=== PATIENT | female | born 1935 | race Caucasian/White ===

== ENCOUNTER 2016-12-30 14:40 | Emergency (ER) | payer OTHER, MEDICARE ==
[~2016-12-30] VITALS: Ht 172.7 cm; Wt 63.5 kg
--- NOTE | 2016-12-30 14:50 | ED MVC/FALL/TRAUMA COMPLAINT ---
History of Present Illness General Chief Complaint: Fall Stated Complaint: TRIP AND FALL C/O LEFT ELBOW, R KNEE, LEFT HEAD Source: patient Exam Limitations: no limitations Vital Signs & Intake/Output Vital Signs & Intake/Output Vital Signs Date Time Temp Pulse Resp B/P Pulse O2 O2 Flow FiO2 Ox Delivery Rate 12/30 1702 96.2 65 18 159/78 99 Room Air 12/30 1445 96.6 72 20 142/79 98 Room Air Room Air Allergies Coded Allergies: No Known Allergies (12/30/16) Reconcile Medications Metoprolol Succinate 25 MG TAB 1 TAB PO DAILY HEART (Reported) Tramadol HCl 50 MG TABLET 1 TAB PO BIDP PRN PAIN (Reported) Zolpidem Tartrate 5 MG TABLET 0.5 TAB PO QPMP PRN SLEEP (Reported) Triage Note: BIBA FROM [facility], TRIP AND FALL WHEN LEAVING EXERCISE CLASS. PT TO ED AWAKE, ALERT, ORIENTED, C/O LEFT ELBOW, RIGHT KNEE, ABRASIONS NOTED TO LEFT FOREHEAD/EYEBROW AREA. -LOC -BLOOD THINNERS. Triage Nurses Notes Reviewed? yes Onset: Abrupt Timing: single episode today Severity: severe Severity Numbers: 7 Method of Injury: direct blow, fall Loss of Consciousness: no loss of consciousness HPI: Patient is a 81-year-old female with past medical history of scoliosis fibromyalgia and hypertension who states that she was in her normal state of health today and her normal workout she was ambulating outside in the parking lot where she tripped and suffered a mechanical fall striking the left lateral aspect of her head and face to the pavement along with her left posterior elbow and right knee. Patient suffered skin abrasions Patient denies any loss of consciousness. Denies any preceding episode of lightheaded sensation or dizziness. Denies any neck pain or back pain or abdominal pain. Patient was brought in by ambulance. Tetanus is unknown. (BIANCA NOBLE) Past History Travel History Traveled to [place] past 21 day No Medical History Any Pertinent Medical History? see below for history Other Medical Hx: Hypertension, fibromyalgia Surgical History Surgical History: non-contributory Family History Hx Contributory? No (BIANCA NOBLE) Review of Systems Review of Systems Constitutional: Reports: no symptoms. Eyes: Reports: no symptoms. Ears, Nose, Throat, Mouth: Reports: no symptoms. Respiratory: Reports: no symptoms. Cardiovascular: Reports: no symptoms. Gastrointestinal/Abdominal: Reports: no symptoms. Genitourinary: Reports: no symptoms. Musculoskeletal: Reports: see HPI, joint pain. Skin: Reports: see HPI. Neurological/Psychological: Reports: see HPI. All Other Systems: Reviewed and Negative (BIANCA NOBLE) Physical Exam Physical Exam General Appearance: no apparent distress, alert, comfortable Comments: Well-developed well-nourished person in no acute distress HEENT: Normal EENT exam, extraocular motion intact, no nystagmus. Pupils equally round and reactive to light and accommodation. Nose is atraumatic. External auditory canal and Tympanic membranes clear. Pharynx normal. No swelling or edema. Neck: Supple, no lymphadenopathy, normal range of motion without pain or tenderness No central spinous tenderness Back: Nontender, no CVA tenderness. No central spinous tenderness Cardiovascular: Regular rate and rhythms no murmurs rubs or gallops, normal JVP Respiratory: Chest nontender. No respiratory distress.breath sounds clear to auscultation bilaterally Abdomen: Soft, nontender nondistended, no appreciable organomegaly. Normal bowel sounds. No ascites Extremity: No edema, no calf tenderness to palpation, normal and equal pulses. Neuro: Alert oriented x3, motor sensory normal, cranial nerves II through XII grossly intact. Skin: No appreciable rash on exposed skin, skin is warm and dry. Psych: Mood and affect is normal, memory and judgment is normal. Diagram Body: 1) Superficial skin abrasion with full active range of motion and generalized point tenderness noted 2) Olecranon superficial skin abrasion with decreased active range of motion noted with flexion and extension. Head: 1) Noted superficial skin abrasion and point tenderness no step-off deformity Core Measures ACS in differential dx? No Severe Sepsis Present: No Septic Shock Present: No (BIANCA NOBLE) Progress Differential Diagnosis: abd injury, C/T/L spine injury, ext injury, ICH, pelvis injury, pnemothorax, spinal cord injury Plan of Care: Orders Procedure Date/time Status Durable Medical Equipment 12/30 7794 Active Patient's distal extremities were neurovascularly intact. Patient does have concerns of displaced olecranon fracture in which I discussed patient with Aroldo Roberts MD who he advised patient to be placed in posterior splint and shoulder immobilizer. The wound was cleaned to the left elbow and right knee and left orbit with chlorhexidine and bacitracin Patient had no central spinous tenderness on exam and had normal steady gait on discharge. Patient was strongly advised to follow up with orthopedic surgeon Upon discharge patient looks well no apparent distress and will comply with discharge instructions and had no questions (AYANA GALARZA,BIANCA) Diagnostic Imaging: Viewed by Me: Radiology Read, CT Scan. Radiology Impression: acute abnormality, fracture Comments: PATIENT: JAYESH BRISENO PRESENT AGE: 81 PATIENT ACCOUNT NO: [id number] : 34 LOCATION: [facility] ORDERING PHYSICIAN: BIANCA GALARZA SERVICE DATE: 12/30/16 EXAM TYPE: CAT - CT HEAD WO IV CONTRAST; CT MAXILLOFACIAL W/O CON EXAMINATION: CT HEAD W/O IV CONTRAST CT FACIAL BONES WITHOUT IV CONTRAST CLINICAL INFORMATION: History of fall with head injury. COMPARISON: None TECHNIQUE: Head - Contiguous axial imaging of the head was performed from the skull base to the vertex without the administration of intravenous contrast, and axial images reconstructed at 0.625 mm, 2.5 mm and 5 mm slice thickness. Facial bones- Volumetric, helical CT acquisition of the facial bones was obtained without contrast; in addition to the standard set of axial images, multiplanar reformatted images were provided in the coronal and sagittal imaging planes. DLP: 1327 mGy-cm (total) FINDINGS: HEAD: There is atherosclerotic calcification of the vertebral arteries and right cavernous carotid artery. The brain parenchyma has normal attenuation with well-preserved dangelo-white matter differentiation. No evidence of an acute major vascular territory infarction, hemorrhage, extra-axial fluid collection, focal mass effect or midline shift. The ventricles, sulci and basilar cisterns are unremarkable. The calvarium is intact and the mastoid air cells and middle ear cavities are clear. FACIAL BONES: The maxilla, mandible and temporomandibular joints are intact. There is periodontal disease of the mandible as manifest by periapical lucencies, and cortical bone resorption, around the mandibular left central and lateral incisors. Also, there is mild periapical lucency around the right central incisor. The orbital puentes, including lamina papyracea an orbital floors, are intact. The globes are unremarkable. The orbital apex, optic canals, and retrobulbar fat planes are normal. Nasal bones, pterygoid plates and zygomatic arches are intact. The paranasal sinuses are well-aerated and the ostiomeatal units are patent. The occipital condyles, atlas, axis and atlantoaxial articulation are intact. There is degenerative osseous spurring at the anterior atlantoaxial joint. There is multilevel moderate and severe facet arthropathy of the visualized cervical spine. Multilevel uncovertebral joint hypertrophy, as well. Degenerative disc disease is severe at C5-C6 and C6-C7. At C4-C5, the severe facet arthropathy is associated with 0.5 cm of anterolisthesis of C4 on C5. There are no acute fractures identified within the anterior or posterior elements of the examined degenerated spine. No prevertebral soft tissue swelling. IMPRESSION: 1. No acute intracranial pathology. 2. No acute facial bone injury. 3. There is multilevel degenerative arthropathy of the visualized cervical spine. Findings include severe facet osteoarthritis of C4-C5 with 0.5 cm of degenerative anterolisthesis of C4 on C5. Degenerative disc disease is severe at C5-C6 and C6-C7. 4. Incidentally noted is periodontal disease affecting the mandibular incisors. DICTATED BY: FRANCESCA TELLO MD DATE/TIME DICTATED:12/30/161613 LOCATE TECHNICIAN:RAMOS DATE/TIME TRANSCRIBED:12/30/161613 CONFIDENTIAL, DO NOT COPY WITHOUT APPROPRIATE AUTHORIZATION. <Electronically signed in Other Vendor System> SIGNED BY: FRANCESCA TELLO MD 12/30/16 9729 PATIENT: JAYESH BRISENO PRESENT AGE: 81 PATIENT ACCOUNT NO: [id number] : 34 LOCATION: [facility] ORDERING PHYSICIAN: BIANCA GALARZA SERVICE DATE: 12/30/16 EXAM TYPE: RAD - XRY-ELBOW 3 OR MORE VIEWS, L EXAMINATION: XR ELBOW, LEFT CLINICAL INFORMATION: Fall. Injury. Pain. COMPARISON: None TECHNIQUE: Four views of the left elbow. FINDINGS: There is a transverse fracture through the olecranon. The proximal fracture fragment is displaced posterior and cephalad with about 2 cm proximal displacement of the fracture fragment. The humerus and the radius are intact. No dislocation. IMPRESSION: Displaced fracture through the olecranon. PATIENT: JAYESH BRISENO PRESENT AGE: 81 PATIENT ACCOUNT NO: [id number] : 34 LOCATION: [facility] ORDERING PHYSICIAN: BIANCA GALARZA SERVICE DATE: 12/30/16 EXAM TYPE: RAD - XRY-ELBOW 3 OR MORE VIEWS, L EXAMINATION: XR ELBOW, LEFT CLINICAL INFORMATION: Fall. Injury. Pain. COMPARISON: None TECHNIQUE: Four views of the left elbow. FINDINGS: There is a transverse fracture through the olecranon. The proximal fracture fragment is displaced posterior and cephalad with about 2 cm proximal displacement of the fracture fragment. The humerus and the radius are intact. No dislocation. IMPRESSION: Displaced fracture through the olecranon. PATIENT: JAYESH BRISENO PRESENT AGE: 81 PATIENT ACCOUNT NO: [id number] : 34 LOCATION: [facility] ORDERING PHYSICIAN: BIANCA GALARZA SERVICE DATE: 12/30/16 EXAM TYPE: RAD - XRY-KNEE COMPLETE RIGHT EXAMINATION: XR KNEE, RIGHT CLINICAL INFORMATION: Right knee pain following fall. COMPARISON: None. TECHNIQUE: AP, lateral and bilateral oblique views of the right knee. FINDINGS: Multiple views of the right knee demonstrate mild soft tissue swelling surrounding the right knee joint. There is no visible fracture or dislocation of the right knee. There is mild tricompartmental osteoarthrosis of the right knee joint, characterized by joint space narrowing and juxta marginal osteophyte formation. No significant suprapatellar knee joint effusion is identified. Vague linear densities within the lateral tibiofemoral compartment could reflect calcifications of the costochondral cartilage in the setting of CPPD. IMPRESSION: Mild soft tissue swelling surrounding the right knee joint, without visible fracture or dislocation. 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 Vague linear densities within the lateral tibiofemoral compartment are indeterminate but could reflect calcifications subchondral cartilage in the setting of CPPD. (AYANA GALARZA,BIANCA) Departure Departure Disposition: HOME OR SELF CARE Condition: Stable Clinical Impression Primary Impression: Closed fracture of left olecranon process Secondary Impressions: Minor head injury, Skin abrasion Additional Instructions: As discussed tomorrow please follow-up and establish orthopedic Aroldo Roberts MD to make an appointment to be seen for further evaluation treatment. Continue to leave the splint and the shoulder immobilizer on at all times for support and stability. If symptoms worsen return to emergency room. Begin to apply bacitracin to your facial wound once a day for the following 4 days. If you note signs of infection redness, pain, swelling, discharge return to emergency room Continue with [id number] ibuprofen and your already prescribed tramadol for pain and inflammation Departure Forms: Customer Survey General Discharge Information (BIANCA NOBLE) PA/ENGINE BUILDER Co-Sign Statement Statement: ED Attending supervision documentation- [] I saw and evaluated the patient. I have also reviewed all the pertinent lab results and diagnostic results. I agree with the findings and the plan of care as documented in the PA's/ENGINE BUILDER's documentation. [X] I have reviewed the ED Record and agree with the PA's/ENGINE BUILDER's documentation. [] Additions or exceptions (if any) to the PAs/ENGINE BUILDER's note and plan are summarized below: [] (ALEJANDRO LEGGETT,RAFAELA Oates) Procedures Splinting Location: LEFT UPPER EXTREMITY Manual Alignment Performed: No Hand-Made Type: orthoglass Splint: POSTERIOR SPLINT OF UPPER ARM Splint Applied By: splint applied by me Pre-Proc Neuro Vasc Exam: normal Post-Proc Neuro Vasc Exam: normal (BIANCA NOBLE)
[2016-12-30] MEDS ORDERED: METOPROLOL SUCC25 M1 PO (15:26)
[2016-12-30] MEDS ORDERED: TRAMADOL HCL50 M1 PO (15:26)
[2016-12-30] MEDS ORDERED: ZOLPIDEM TARTRAT5 M1 PO (15:26)
--- NOTE | 2016-12-30 15:29 | RADIOLOGY REPORT ---
EXAMINATION: XR ELBOW, LEFT CLINICAL INFORMATION: Fall. Injury. Pain. COMPARISON: None TECHNIQUE: Four views of the left elbow. FINDINGS: There is a transverse fracture through the olecranon. The proximal fracture fragment is displaced posterior and cephalad with about 2 cm proximal displacement of the fracture fragment. The humerus and the radius are intact. No dislocation. IMPRESSION: Displaced fracture through the olecranon.
--- NOTE | 2016-12-30 15:34 | RADIOLOGY REPORT ---
EXAMINATION: XR KNEE, RIGHT CLINICAL INFORMATION: Right knee pain following fall. COMPARISON: None. TECHNIQUE: AP, lateral and bilateral oblique views of the right knee. FINDINGS: Multiple views of the right knee demonstrate mild soft tissue swelling surrounding the right knee joint. There is no visible fracture or dislocation of the right knee. There is mild tricompartmental osteoarthrosis of the right knee joint, characterized by joint space narrowing and juxta marginal osteophyte formation. No significant suprapatellar knee joint effusion is identified. Vague linear densities within the lateral tibiofemoral compartment could reflect calcifications of the costochondral cartilage in the setting of CPPD. IMPRESSION: Mild soft tissue swelling surrounding the right knee joint, without visible fracture or dislocation. 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 Vague linear densities within the lateral tibiofemoral compartment are indeterminate but could reflect calcifications subchondral cartilage in the setting of CPPD.
--- NOTE | 2016-12-30 16:39 | CT SCAN REPORT ---
EXAMINATION: CT HEAD W/O IV CONTRAST CT FACIAL BONES WITHOUT IV CONTRAST CLINICAL INFORMATION: History of fall with head injury. COMPARISON: None TECHNIQUE: Head - Contiguous axial imaging of the head was performed from the skull base to the vertex without the administration of intravenous contrast, and axial images reconstructed at 0.625 mm, 2.5 mm and 5 mm slice thickness. Facial bones- Volumetric, helical CT acquisition of the facial bones was obtained without contrast; in addition to the standard set of axial images, multiplanar reformatted images were provided in the coronal and sagittal imaging planes. DLP: 1327 mGy-cm (total) FINDINGS: HEAD: There is atherosclerotic calcification of the vertebral arteries and right cavernous carotid artery. The brain parenchyma has normal attenuation with well-preserved dangelo-white matter differentiation. No evidence of an acute major vascular territory infarction, hemorrhage, extra-axial fluid collection, focal mass effect or midline shift. The ventricles, sulci and basilar cisterns are unremarkable. The calvarium is intact and the mastoid air cells and middle ear cavities are clear. FACIAL BONES: The maxilla, mandible and temporomandibular joints are intact. There is periodontal disease of the mandible as manifest by periapical lucencies, and cortical bone resorption, around the mandibular left central and lateral incisors. Also, there is mild periapical lucency around the right central incisor. The orbital puentes, including lamina papyracea an orbital floors, are intact. The globes are unremarkable. The orbital apex, optic canals, and retrobulbar fat planes are normal. Nasal bones, pterygoid plates and zygomatic arches are intact. The paranasal sinuses are well-aerated and the ostiomeatal units are patent. The occipital condyles, atlas, axis and atlantoaxial articulation are intact. There is degenerative osseous spurring at the anterior atlantoaxial joint. There is multilevel moderate and severe facet arthropathy of the visualized cervical spine. Multilevel uncovertebral joint hypertrophy, as well. Degenerative disc disease is severe at C5-C6 and C6-C7. At C4-C5, the severe facet arthropathy is associated with 0.5 cm of anterolisthesis of C4 on C5. There are no acute fractures identified within the anterior or posterior elements of the examined degenerated spine. No prevertebral soft tissue swelling. IMPRESSION: 1. No acute intracranial pathology. 2. No acute facial bone injury. 3. There is multilevel degenerative arthropathy of the visualized cervical spine. Findings include severe facet osteoarthritis of C4-C5 with 0.5 cm of degenerative anterolisthesis of C4 on C5. Degenerative disc disease is severe at C5-C6 and C6-C7. 4. Incidentally noted is periodontal disease affecting the mandibular incisors.
[2016-12-30 17:02] VITALS: BP 159/78
[2017-01-07] MEDS ORDERED: LIPITOR20 M2 PO (09:49)
== END 2016-12-30 18:02 ==
LOC: ERH 14:40
DX: S52.022A Displaced fracture of olecranon process without intraarticular extension of left ulna, initial encounter for closed fracture (principal); S09.90XA Unspecified injury of head, initial encounter; T14.8 Other injury of unspecified body region; W01.0XXA Fall on same level from slipping, tripping and stumbling without subsequent striking against object, initial encounter; Y93.01 Activity, walking, marching and hiking; Y92.481 Parking lot as the place of occurrence of the external cause
CPT/HCPCS: 73080-LT; 73562-RT; 90471; 90714

== ENCOUNTER 2017-01-01 15:32 | Emergency (ER) | payer OTHER, MEDICARE ==
[~2017-01-01] VITALS: Ht 172.7 cm; Wt 63.5 kg
[~2017-01-01 15:32] MED LIST: METOPROLOL SUCC25 M1 PO; TRAMADOL HCL50 M1 PO; ZOLPIDEM TARTRAT5 M1 PO
[2017-01-01 15:43] VITALS: BP 121/77
--- NOTE | 2017-01-01 16:32 | ED UPPER/LOWER EXTREMITY COMPL ---
History of Present Illness General Chief Complaint: Upper Extremity Problem Stated Complaint: LEFT ARM PAIN, SEEN HERE 12/30 FOR ELBOW FX Source: patient, old records Exam Limitations: no limitations Vital Signs & Intake/Output Vital Signs & Intake/Output Vital Signs Date Time Temp Pulse Resp B/P Pulse O2 O2 Flow FiO2 Ox Delivery Rate 01/01 1543 97.0 77 20 121/77 98 Room Air ED Intake and Output 01/02 0000 01/01 1200 Intake Total Output Total Balance Patient 140 lb Weight Allergies Coded Allergies: No Known Allergies (12/30/16) Reconcile Medications Metoprolol Succinate 25 MG TAB 1 TAB PO DAILY HEART (Reported) Tramadol HCl 50 MG TABLET 1 TAB PO BIDP PRN PAIN (Reported) Zolpidem Tartrate 5 MG TABLET 0.5 TAB PO QPMP PRN SLEEP (Reported) Triage Note: PT TO ED C/O LEFT ARM PAIN. PT IS S/P LEFT ELBOW FRACTURE ON 12/30. STATES WENT TO ORTHO YESTERDAY AND HAD LEFT ARM RE-WRAPPED. PT STATES PAIN IS WORSE, ALSO SWELLING AND BRUISING IS WORSE. DECLINES PAIN MEDS IN TRIAGE. Triage Nurses Notes Reviewed? yes HPI: 81 yo F PMH HTN, Fibromyalgia presenting with left arm pain and swelling. Patient fell on 12/30/16, sustained left olecranon process fracture, evaluated in this ED, discharged [facility] orthopedic f/u. Yesterday went to see orthopedist, examined elbow, will need surgery, but patient needs PMD cardiac clearance first , new splint and SANJAY wrap applied. Since that time patient has had progressive swelling and pain in left arm, denies finger cyanosis or pallor, motor or sensory disturbances. Concerned about pain and selling cutting off circulation prompting presentation to ED. (BAYRON LEGGETT,JAROD) Past History Travel History Traveled to [place] past 21 day No Medical History Any Pertinent Medical History? see below for history Neurological: NONE EENT: NONE Cardiovascular: hypertension Respiratory: NONE Gastrointestinal: NONE Hepatic: NONE Renal: NONE Musculoskeletal: fibromyalgia, SCOLIOSIS Psychiatric: NONE Endocrine: NONE Blood Disorders: NONE Cancer(s): NONE GEOMORPHOLOGY TEACHER/Reproductive: NONE Other Medical Hx: Hypertension, fibromyalgia Tetanus Vaccine: 12/30/16 Surgical History Surgical History: non-contributory Psychosocial History What is your primary language Estonian Tobacco Use: Quit >30 days ago ETOH Use: denies use Illicit Drug Use: denies illicit drug use Family History Hx Contributory? Yes (JAROD VERMA MD) Review of Systems Review of Systems Constitutional: Reports: no symptoms. EENTM: Reports: no symptoms. Respiratory: Reports: no symptoms. Cardiovascular: Reports: no symptoms. Gastrointestinal/Abdominal: Reports: no symptoms. Genitourinary: Reports: no symptoms. Musculoskeletal: Reports: joint swelling, muscle pain. Skin: Reports: no symptoms. Neurological/Psychological: Reports: no symptoms. Denies: paresthesia, weakness. Hematologic/Endocrine: Reports: no symptoms. Immunological: Reports: no symptoms. All Other Systems: Reviewed and Negative (JAROD VERMA MD) Physical Exam Physical Exam General Appearance: well developed/nourished, no apparent distress, alert, awake Head: normal appearance Eyes: Bilateral: normal appearance. Ears, Nose, Throat: normal pharynx, normal ENT inspection Neck: normal inspection, supple, full range of motion Peripheral Pulses: 2+ radial (R), 2+ radial (L), 2+ ulnar (L) Gastrointestinal: organmegaly (Non-TTP throughout) Back: normal inspection, normal range of motion Shoulder Left: normal range of motion, normal inspection Elbow Left: swelling, tenderness Comments: Left arm: Backslap splint and sanjay wrap in place, Full ROM of hand without motor deficits, No sensory deficits in LUE, Soft compressible compartments of upper and lower arm, Mild swelling and ecchymosis of left dorsal hand (JAROD VERMA MD) Progress Differential Diagnosis: compartment syndrome, contusion, fracture Plan of Care: Physician MDM: 81 yo F presenting with left arm swelling and pain s/p fall with elbow Fx. VSS, LUE exam as above. DDx: Fracture, Soft tissue swelling, low concern for compartment syndrome, vascular compromise, or DVT. Left upper extremity sanjay wrap removed with splint maintained in good position, re-wraped with less tension, but with good immobilization, repeat neurovascular exam unchanged. Patient given teaching about symptomatic control of swelling ( elevation, sanjay wraps ect.), already has tylenol, ibuprofen, tramadol, and oxycodone at home, counseled not to take tramadol and oxycodone together. Pain greatly improved after re-application of sanjay wrap. D/Brant with return precautions , plan to f/u wtith PMD and orthopedist as scheduled. D/W Dr. Ac. (BAYRON LEGGETT,JAROD) Departure Departure Disposition: HOME OR SELF CARE Condition: Stable Clinical Impression Primary Impression: Left arm pain Referrals: PATIENT HAS NO PRIMARY CARE DR (PCP/Family) Additional Instructions: Take ibuprofen or tylenol for mild-moderate pain. Take tramadol OR oxycodone for severe pain. Follow up with your primary care physician in the next 2-3 days for cardiac clearance for surgery. Follow up with your orthopedist as scheduled. Return to the ED for any new, worsening or concerning symptoms. Departure Forms: Customer Survey General Discharge Information (BAYRON LEGGETT,JAROD) PA/PACKING AND SHIPPING CLERK Co-Sign Statement Statement: ED Attending supervision documentation- [X] I saw and evaluated the patient. I have also reviewed all the pertinent lab results and diagnostic results. I agree with the findings and the plan of care as documented in the PA's/PACKING AND SHIPPING CLERK's documentation. [X] I have reviewed the ED Record and agree with the PA's/PACKING AND SHIPPING CLERK's documentation. [] Additions or exceptions (if any) to the PAs/PACKING AND SHIPPING CLERK's note and plan are summarized below: [] (ASIA LEGGETT,YOGESH)
[2017-01-07] MEDS ORDERED: LIPITOR20 M2 PO (09:49)
== END 2017-01-01 16:43 ==
LOC: ERH 15:32
DX: M79.602 Pain in left arm (principal)
CPT/HCPCS: 99282

== ENCOUNTER → 2017-01-10 | Day surgery (SDC) | payer OTHER, MEDICARE ==
[~2017-01-10] VITALS: Ht 172.7 cm; Wt 61.2 kg
[~2017-01-10] MED LIST changes: +LIPITOR20 M2 PO
--- NOTE | 2017-01-15 09:24 | Operative Report ---
Operative/Inv Procedure Report Surgery Date: 01/10/17 Name of Procedure: ORIF Displaced and comminuted left olecranon fracture Pre-Operative Diagnosis: Left displaced/comminuted olecranon fracture Post-Operative Diagnosis: Same Estimated Blood Loss: scant Surgeon/Nanotechnology Engineering Technologist: BARBARA LEGGETT,LAVONNE Anesthesia: moderate sedation, block Implants: 6.5 mm cannulated screw/18-gauge [id number] wire Drains: None Specimens: None Complications: None Condition: Stable Operative Indication: Patient is an 81-year-old woman who sustained an elbow injury following a fall. She was found to have a displaced olecranon fracture on the left side. Due to the amount of displacement surgery was recommended. However risks benefits and expeditious of surgical and nonsurgical options were discussed including but not limited to persistent elbow pain, weakness, infection, injury to blood vessel or nerve and anesthesia risks. Patient elected to proceed with surgical option of ORIF Operative/Procedure Note Note: Technical description of procedure. Patient was brought to the operating room and transferred to the operating table. Once under appropriate anesthesia patient was placed in a slight lateral position all bony prominences well- padded. Left upper extremity was prepped and draped in standard fashion preoperative IV antibiotics were given prophylactically. The arm was elevated exsanguinated and tourniquet was inflated to 250 mm of pressure. A standard posterior incision was made with slight curvilinear portion around the olecranon was made. The incision was taken down there was a large fracture hematoma which was evacuated. Copious irrigation of this area followed. There was evidence of comminution along the most lateral aspect of the olecranon. I was able to reduce the fracture anatomically and hold it in place with a towel clamp. I then placed a guidewire for the 6.5 mm cannulated screw across the fracture site. I checked the position of this pin to confirm. I was satisfied with position of this. I then measured it. This was followed by drilling and placed the appropriate length screw. A 100 mm screw was placed with good compression across the fracture site. To reinforce and to provide figure a compression I applied a figure 818-gauge wire. I drilled a small hole distal in the shaft of the ulna. Passed a wire through there and then I passed a wire over the cannulated screw head hugging the bone deep to the triceps area. I was satisfied with position of this wire. I then tightened the [id number] taking care not to crush the relatively osteopenic bone. I was satisfied with the compression. Took the elbow through range of motion after cutting the wire to length and removing the pin for the cannulated screw. I was satisfied with the stability. I did check fluoroscopic images in both AP lateral planes as well as oblique planes I was satisfied with the reduction of the fracture as well as the position of the screw it was well within the ulnar canal on both AP and lateral planes. After copious irrigation I then closed the soft tissue over the wire and hardware. I made sure that the cannulated screw head was deep to the tendon and hugging the bone without crushing the bone and causing more comminution at the olecranon. I was satisfied with the stability of the construct. Subcutaneous tissues closed with 2-0 Vicryl followed by skin closure with a running 3-0 nylon suture. Appropriate just his were applied and a splint was applied. I also made sure there was no undue pressure in the antecubital fossa. Patient was awakened and taken to recovery room in good condition. No intraoperative complications. Blood loss was minimal Discharge Disposition: PACU
== END ==
LOC: STS 04:02
DX: S52.032A Displaced fracture of olecranon process with intraarticular extension of left ulna, initial encounter for closed fracture (principal); W19.XXXA Unspecified fall, initial encounter; I10 Essential (primary) hypertension; M79.7 Fibromyalgia; Z86.79 Personal history of other diseases of the circulatory system
CPT/HCPCS: J0131; J0690; J2250